=== PATIENT | male | born 1955 | race Caucasian/White ===

== ENCOUNTER 2016-12-07 15:47 | Outpatient (CLI) | payer BC ==
--- NOTE | 2016-12-07 17:07 | CT Report ---
EXAM: CT ABDOMEN AND PELVIS (CT KUB) EXAM DATE: 12/07/2016 04:16 PM. CLINICAL HISTORY: Hematuria, flank pain COMPARISONS: None. TECHNIQUE: Routine axial helical CT imaging was performed through the abdomen and pelvis without IV c ontrast. Reconstructions: Coronal and sagittal. In accordance with CT protocol optimization, one or more of the following dose reduction techniques w ere utilized for this exam: automated exposure control, adjustment of mA and/or KV based on patient s ize, or use of iterative reconstructive technique. FINDINGS: Lung Bases: Unremarkable. Right Kidney/Ureter: No stones, hydronephrosis, or hydroureter. No perinephric fat stranding. There i s a parapelvic cyst. Left Kidney/Ureter: No stones, hydronephrosis, or hydroureter. No perinephric fat stranding. There is a small exophytic cyst. Other Solid Organs: Noncontrast images of the solid organs are grossly unremarkable. Gallbladder/Bile Ducts: Unremarkable. Peritoneal Cavity: There is mild sigmoid colon diverticulitis. There is no evidence of perforation or pericolonic abscess. Stomach and small bowel demonstrate no acute abnormalities. There are no enlarg ed mesenteric or retroperitoneal lymph nodes. No intraperitoneal free air or free fluid. Pelvic Organs: No bladder stones or wall thickening. Noncontrast images of the visualized pelvic orga ns are unremarkable. Vasculature: Unremarkable. Other: None. IMPRESSION: 1. There is mild sigmoid colon diverticulitis. No evidence of perforation or pericolonic abscess. 2. The kidneys demonstrate no stones or hydronephrosis. [facility] The call report notification system was initiated by Dr. Trenton Vizcarra at 16:33 hrs on 12/07/16. The above findings were discussed with Dr Padron by Dr. Trenton Vizcarra at 17:03 hrs on 12/07/16. Referring Provider Line: [phone] SITE ID: [id number]
== END 2016-12-07 15:48 | disposition home or self-care (01) ==
LOC: DI 15:47
PROVIDERS: ATTEND Family Medicine
DX: K57.32 Diverticulitis of large intestine without perforation or abscess without bleeding (principal)
CPT/HCPCS: 74176

== ENCOUNTER 2017-01-18 08:05 | Day surgery (SDC) | payer BC ==
[2017-01-18] MEDS ORDERED: LACTATED RINGERS 1,000 ML IV ONE (08:35)
[2017-01-18] MEDS ORDERED: fentaNYL 100 MCG/2 ML VIAL IVP ONE (09:53)
[2017-01-18] MEDS ORDERED: MIDAZOLAM 2 MG/2 ML VIAL IVP ONE (09:53)
[2017-01-18 11:00] VITALS: BP 112/75
== END 2017-01-18 08:06 | disposition home or self-care (01) ==
LOC: SDS 08:05
PROVIDERS: ATTEND Surgery
PROC: 0DBK8ZX Excision of Ascending Colon, Via Natural or Artificial Opening Endoscopic, Diagnostic (ICD-10-PCS; principal; 2017-01-18 09:15)
DX: D12.2 Benign neoplasm of ascending colon (principal); K57.30 Diverticulosis of large intestine without perforation or abscess without bleeding; K64.8 Other hemorrhoids
CPT/HCPCS: 45385; J7120; 88305